=== PATIENT | male | born 1955 | race Caucasian/White ===

== ENCOUNTER 2018-12-10 07:25 | Emergency (ER) | payer MEDICAID ==
[~2018-12-10] VITALS: Ht 180.3 cm; Wt 82.6 kg
[2018-12-10 07:45] VITALS: BP 108/62
[2018-12-10] MEDS ORDERED: NYSTATIN-TRIAMC15 G2 TP (07:55)
--- NOTE | 2018-12-10 08:02 | Emergency Room Report ---
History of Present Illness General Chief Complaint: Skin Rash/Abscess Source: Patient Present Illness HPI Patient presents with reports of possible mouse bite In the left testicular area Reports that this happened last night he did not see the actual bite occurring however felt some irritation and there have been some mice around where he has been sleeping Denies any fevers or chills patient has liver disease and liver failure with ascites Is getting set to be on the liver transplant list at [facility] denies any other medical complaints denies any chest pain or shortness of breath denies any fevers or chills Allergies: Coded Allergies: No Known Allergies (Unverified , 12/10/18) Patient History Past Medical History: see triage record Pertinent Family History: none Reviewed Nursing Documentation: PMH: Agreed; PSxH: Agreed Nursing Documentation-PMH Past Medical History: No History, Except For Hx COPD: Yes Hx Cancer: Yes Hx Gastrointestinal Problems: Yes - Hepatitis C, Hernia Review of Systems All Other Systems: negative except mentioned in HPI Physical Exam Vital Signs Date Time Temp Pulse Resp B/P (MAP) Pulse Ox O2 Delivery O2 Flow Rate FiO2 12/10/18 07:37 95.5 89 14 95/42 90 Room Air Sp02 EP Interpretation: reviewed, normal General Appearance: no apparent distress Head: normocephalic, atraumatic Eyes: bilateral eye PERRL, bilateral eye EOMI ENT: hearing grossly normal, normal pharynx Neck: supple Respiratory: lungs clear, no retraction, no accessory muscle use Cardiovascular #1: regular rate, rhythm Gastrointestinal: other - Mid abdominal hernia, ascites, hepatomegaly Musculoskeletal: normal inspection Neurologic: alert, oriented x3, responsive Skin: other - Just at the lateral aspect of the left scrotal area there was some out erythema no obvious break in the skin no obvious evidence of a rodent bite, no other fluctuance, Lymphatic: no adenopathy Medical Decision Making Diagnostic Impression: Primary Impression: Rash and other nonspecific skin eruption ER Course There does appear to be some irritation of the left scrotal area Fine erythematous hue Has the appearance of possible heat rash Patient initiated on antifungal medication topically Reports that he is following up [facility] the [facility] And will follow closely as outpatient Last Vital Signs Date Time Temp Pulse Resp B/P (MAP) Pulse Ox O2 Delivery O2 Flow Rate FiO2 12/10/18 07:37 95.5 89 14 95/42 90 Room Air Status: unchanged Disposition: HOME, SELF-CARE Condition: Stable Scripts Nystatin/Triamcin (NYSTATIN-TRIAMCINOLONE CREAM) 15 Gm Cream..g. 1 INCH TP BID for 7 Days, GM Prov: Gilma Spivey DO 12/10/18 Patient Instructions: Rash Additional Instructions: Patient is provided with the discharge instructions notified to follow up with primary doctor in the next 2-3 days otherwise return to the er with any worsening symptoms. Please note that this report is being documented using [employer] technology. This can lead to erroneous entry secondary to incorrect interpretation by the dictating instrument. Gilma Spivey DO Dec 10, 2018 08:02
[2018-12-10 08:07] VITALS: BP 106/56
--- NOTE | 2018-12-10 08:08 | NUR ---
ER DISCHARGE NOTE: Patient is cleared to be discharged per ERMD, pt is aox4, on room air, with stable vital signs. pt was given dc and prescription instructions, pt was able to verbalize understanding, pt id band removed. pt is able to ambulate with steady gait. pt took all belongings.
[2018-12-10] MEDS ORDERED: ACETAMINOPHEN-1 EAC1 ORAL (21:00)
== END 2018-12-10 08:48 | disposition home or self-care (01) ==
LOC: EMR 08:02
DX: R21 Rash and other nonspecific skin eruption (principal); J44.9 Chronic obstructive pulmonary disease, unspecified; Z85.9 Personal history of malignant neoplasm, unspecified; B19.20 Unspecified viral hepatitis C without hepatic coma; K43.9 Ventral hernia without obstruction or gangrene
CPT/HCPCS: 99282

== ENCOUNTER 2018-12-10 12:03 | Emergency (ER) | payer MEDICAID ==
[~2018-12-10] VITALS: Ht 175.3 cm; Wt 68.0 kg
[2018-12-10 11:52] VITALS: BP 96/65
--- NOTE | 2018-12-10 11:53 | NUR ---
ED Nurse Note: Patient sarah RA 29 from home c/o abdominal pain that he rates a 8/10 pain. patient was just discharged here earlier this morning but states he is experiencing left lower abdominal pain, patient is alert and oriented x4, ambulatory with a steady gait, VSS
[~2018-12-10 12:03] MED LIST: NYSTATIN-TRIAMC15 G2 TP
--- NOTE | 2018-12-10 12:05 | NUR ---
ED Nurse Note: upon skin assessment, patient presents with a hernia located in the abdomen, patient does have a throw up bag however is not actively throwing up at time of arrival
[2018-12-10 12:16] VITALS: BP 102/70
--- NOTE | 2018-12-10 12:44 | Emergency Room Report ---
History of Present Illness General Chief Complaint: Abdominal Pain Source: Patient Present Illness HPI Patient present back with paramedics with reports of mid abdominal pain patient was here earlier today complaining of left scrotal discomfort and redness reporting that he was bit by mice Denies any chest pain or shortness of breath Denies any back or flank pain I do recall seeing the patient earlier today he did have abdominal hernia which is easily reducible Discussing further patient reports that he was seen recently at [facility] reports that he was told he needed a liver transplant also reported that he cannot do surgery for the hernia given his comorbidities Denies any other fall or trauma since disposition denies any neck pain or photophobia Allergies: Coded Allergies: No Known Allergies (Unverified , 12/10/18) Patient History Past Medical History: see triage record Pertinent Family History: none Reviewed Nursing Documentation: PMH: Agreed; PSxH: Agreed Nursing Documentation-PMH Past Medical History: No History, Except For Hx COPD: Yes Hx Cancer: Yes Hx Gastrointestinal Problems: Yes - Hepatitis C, Hernia Review of Systems All Other Systems: negative except mentioned in HPI Physical Exam Vital Signs Date Time Temp Pulse Resp B/P (MAP) Pulse Ox O2 Delivery O2 Flow Rate FiO2 12/10/18 11:49 98.4 12/10/18 11:49 88 22 96/65 98 Room Air Sp02 EP Interpretation: reviewed, normal General Appearance: well appearing, no apparent distress Head: normocephalic, atraumatic Eyes: bilateral eye PERRL, bilateral eye EOMI ENT: hearing grossly normal, normal pharynx Neck: supple Respiratory: lungs clear, no retraction Cardiovascular #1: regular rate, rhythm Gastrointestinal: non tender, soft, other - Large midline ventral hernia, soft easily reducible Musculoskeletal: normal inspection Neurologic: alert, oriented x3 Skin: other Medical Decision Making Diagnostic Impression: Primary Impression: hernia ER Course Patient has a very soft benign abdominal exam with easily reducible hernia On further discussion patient reports that he has been seen several times at [facility] and the [facility] He reports that he is not a candidate for surgery because of his cirrhosis He reports that he is being put on the transplant list however Patient had complained of abdominal discomfort however soon after disposition patient is provided with a sandwich and drinking orange juice without any signs of discomfort He is encouraged to follow up closely with primary facility Last Vital Signs Date Time Temp Pulse Resp B/P (MAP) Pulse Ox O2 Delivery O2 Flow Rate FiO2 12/10/18 12:16 98.4 82 22 102/70 98 Room Air Disposition: HOME, SELF-CARE Condition: Stable Patient Instructions: Ventral Hernia Additional Instructions: Patient is provided with the discharge instructions notified to follow up with primary doctor in the next 2-3 days otherwise return to the er with any worsening symptoms. Please note that this report is being documented using [employer] technology. This can lead to erroneous entry secondary to incorrect interpretation by the dictating instrument. Gilma Spivey DO Dec 10, 2018 12:44
[2018-12-10] MEDS ORDERED: ACETAMINOPHEN-1 EAC1 ORAL (21:00)
== END 2018-12-10 12:30 | disposition home or self-care (01) ==
LOC: EDBD 12:03 → EMR 12:21
DX: K43.9 Ventral hernia without obstruction or gangrene (principal); J44.9 Chronic obstructive pulmonary disease, unspecified; Z85.9 Personal history of malignant neoplasm, unspecified; B19.20 Unspecified viral hepatitis C without hepatic coma
CPT/HCPCS: 99283

== ENCOUNTER 2018-12-10 19:13 | Emergency (ER) | payer MEDICAID ==
[~2018-12-10] VITALS: Ht 170.2 cm; Wt 68.0 kg
[2018-12-10 19:15] VITALS: BP 97/58
--- NOTE | 2018-12-10 19:15 | NUR ---
ED Nurse Note: Patient bibderick Ra [id number] from the [facility] c/o abdoinal pain 8/10 accompanied by leg pain, it is patient's 3rd visit today. patient presents with a hernia on the lower abdomen. patient is alert and oriented x4, ambulatory with a steady gait, VSS
[2018-12-10 20:30] VITALS: BP 97/58
--- NOTE | 2018-12-10 20:30 | NUR ---
ER DISCHARGE NOTE: Patient is cleared to be discharged per ERMD, pt is aox4, on room air, with stable vital signs. pt was given dc and prescription instructions, pt was able to verbalize understanding, pt id band removed without complications. pt is able to ambulate with steady gait. pt took all belongings.
[2018-12-10] MEDS ORDERED: Ketorolac 30mg Inj IM ONE (21:00)
[2018-12-10] MEDS ORDERED: HYDROcodone/Acetamin 5/325 tab ORAL ONE (21:00)
[2018-12-10] MEDS ORDERED: ACETAMINOPHEN-1 EAC1 ORAL (21:00)
--- NOTE | 2018-12-11 15:17 | Emergency Room Report ---
History of Present Illness General Chief Complaint: Abdominal Pain Source: Patient Present Illness HPI 63-year-old male presents ED for evaluation. Brought in by EMS. Complaining of abdominal pain. States the pain is chronic. History of ventral hernia. States he was seen here earlier today. States that he is [facility] but is getting [facility] because he also has cirrhosis. Pain is dull, 8 out of 10, nonradiating. Denies nausea or vomiting. States he is passing flatus. No other aggravating relieving factors. Denies any other associated symptoms Allergies: Coded Allergies: No Known Allergies (Unverified , 12/10/18) Patient History Past Medical History: COPD, other - hernia Pertinent Family History: none Social History: Denies: smoking, alcohol use, drug use Immunizations: UTD Reviewed Nursing Documentation: PMH: Agreed; PSxH: Agreed Nursing Documentation-PMH Past Medical History: No History, Except For Hx COPD: Yes Hx Cancer: Yes Hx Gastrointestinal Problems: Yes - Hepatitis C, Hernia Review of Systems All Other Systems: negative except mentioned in HPI Physical Exam Vital Signs Date Time Temp Pulse Resp B/P (MAP) Pulse Ox O2 Delivery O2 Flow Rate FiO2 12/10/18 19:10 97.5 70 20 91/58 96 Room Air Sp02 EP Interpretation: reviewed, normal General Appearance: no apparent distress, alert, GCS 15, non-toxic Head: normocephalic Eyes: bilateral eye normal inspection, bilateral eye PERRL ENT: normal ENT inspection Neck: normal inspection Respiratory: normal inspection Cardiovascular #1: normal inspection Gastrointestinal: normal bowel sounds, soft, non-distended, no guarding, no rebound, hernia - reducible ventral hernia Rectal: deferred Genitourinary: no CVA tenderness Musculoskeletal: normal inspection Neurologic: alert, oriented x3, responsive, motor strength/tone normal, sensory intact, speech normal Psychiatric: normal inspection Skin: normal inspection Lymphatic: normal inspection Medical Decision Making Diagnostic Impression: Primary Impression: Hernia ER Course Hospital Course 63-year-old M presents to ED with abdominal pain Differential diagnosis includes-appendicitis, cholecystitis, small bowel obstruction, gastritis, Clinical course Patient placed on stretcher. After initial history, physical exam reveals male in no acute distress. On exam there is a noticeable ventral hernia. It is easily reducible. No signs of incarceration or obstruction Discussed findings with the patient. I do not believe imaging or workup required at this time. patient is requesting's immediate surgery at this time. Explained that there is no emergency indication for surgery given that it is reducible with no signs of obstruction. I will provide surgical referral however patient states [facility] This is patient's third visit today for the same problem. Safe for discharge close outpatient follow-up. given pain meds here I feel this is a highly complex case requiring extensive working including EKG/ Rhythm strip, Xray/CT/US, Blood/urine lab work, repeat exams while in ED, and administration of strong opiates/narcotics for pain control, admission to hospital or close patient follow up. Diagnosis - hernia Stable and discharged to home. Followup with PMD/surgery. Return to ED if symptoms recur or worsen Last Vital Signs Date Time Temp Pulse Resp B/P (MAP) Pulse Ox O2 Delivery O2 Flow Rate FiO2 12/10/18 21:30 97.6 12/10/18 20:30 82 20 97/58 96 Room Air Status: improved Disposition: HOME, SELF-CARE Condition: Stable Scripts Acetaminophen With Codeine (T#3) (TYLENOL #3 TAB*) Y Tab 1 TAB ORAL Q8H PRN for For Pain, #10 TAB Prov: Braden An MD 12/10/18 Referrals: NOT CHOSEN CEDRIC/,REFERRING (PCP) Ronen Luevano [facility]. [facility] Patient Instructions: Ventral Hernia Braden An MD Dec 11, 2018 15:17
== END 2018-12-10 20:30 | disposition home or self-care (01) ==
LOC: EDBD 19:13 → EMR 19:59
DX: K43.9 Ventral hernia without obstruction or gangrene (principal); J44.9 Chronic obstructive pulmonary disease, unspecified; B19.20 Unspecified viral hepatitis C without hepatic coma
CPT/HCPCS: 96372; 99283; J1885